=== PATIENT | male | born 1950 | race Caucasian/White ===

== ENCOUNTER 2018-09-09 14:39 | Emergency (ER) | payer MEDICARE ==
[~2018-09-09] VITALS: Ht 180.3 cm; Wt 112.5 kg
[2018-09-09] MEDS ORDERED: LIPITOR10 MG PO (14:58)
[2018-09-09] MEDS ORDERED: LISINOPRIL10 MG PO (14:58)
[2018-09-09] MEDS ORDERED: ADULT ASPIRIN81 MG PO (14:59)
[2018-09-09] MEDS ORDERED: GLUCOPHAGE500 MG PO (14:59)
--- NOTE | 2018-09-09 22:19 | EKG ---
[facility] [address] [facility] [place], [place] [address] Signed Normal sinus rhythm Incomplete right bundle branch block Borderline ECG No previous ECGs available Confirmed by ERNST MILLER DO ([id number]) on 09/09/2018 10:18:51 PM Electronically Signed By: ERNST MILLER DO 09/09/18 2219 PATIENT NAME: SRINIVAS KINNEY Electrocardiogram DATE OF : 46 PHYSICIAN: ERNST MILLER DO REPORT #: [id number] REPORT IS CONFIDENTIAL AND NOT TO BE RELEASED WITHOUT AUTHORIZATION
== END 2018-09-09 17:58 | disposition home or self-care (01) ==
LOC: ED 14:39
DX: R07.9 Chest pain, unspecified (principal); K59.00 Constipation, unspecified; E11.9 Type 2 diabetes mellitus without complications; I10 Essential (primary) hypertension; E78.00 Pure hypercholesterolemia, unspecified; Z88.0 Allergy status to penicillin; Z79.84 Long term (current) use of oral hypoglycemic drugs; Z79.82 Long term (current) use of aspirin; Z79.899 Other long term (current) drug therapy
CPT/HCPCS: 71046; 74018; 80053; 84484; 85025; 93005; 93010; 99285-25

== ENCOUNTER 2024-01-19 21:14 | Emergency (ER) | payer OTHER, MEDICARE ==
[~2024-01-19] VITALS: Ht 180.3 cm; Wt 105.0 kg
[~2024-01-19 21:14] MED LIST: ADULT ASPIRIN81 MG PO; GLUCOPHAGE500 MG PO; LIPITOR10 MG PO; LISINOPRIL-HCT1 EAC2 PO; LISINOPRIL10 MG PO
[2024-01-19 21:29] LABS: EOSINOPHILS 1.9 % (0-6); HEMATOCRIT 47.3 % (35.0-50.0); HEMOGLOBIN 15.5 g/dL (12.0-18.0); LYMPHOCYTES 35.2 % (24-44); MCH 26.9 (27-36); MCHC 32.8 g/dl (30-36); MCV 82.1 fl (81-99); MONOCYTES 11.9 % (0-12); PLATELET COUNT 176 K/uL (140-440); RBC 5.76 M/ul (4.3-5.7); RDW 14.8 (10.5-15.0)
[2024-01-19] MEDS ORDERED: ASPIRIN 325 MG TAB PO ONE (21:30)
[2024-01-19] MEDS ORDERED: ASPIRIN 81 MG CHEW PO ONE (21:30)
[2024-01-19] MEDS ORDERED: NITROGLYCERIN PACKET TOP ONE (21:30)
[2024-01-19 21:43] LABS: INR 1.06 (0.80-1.30); PROTIME 13.1 Sec (11.2-14.2)
[2024-01-19 21:55] LABS: ALBUMIN 4.1 g/dL (3.4-5.0); ALBUMIN/GLOBULIN RATIO 1.37 (1.1-2.4); BILIRUBIN, TOTAL 0.5 ng/dL (0.2-1.0); BUN/CREATININE RATIO 15.04 (6.0-28.6); CALCIUM 9.3 mg/dL (8.5-10.1); CREATININE, SERUM 1.13 mg/dL (0.70-1.30); MAGNESIUM 2.2 mg/dL (1.8-2.4); PROTEIN, TOTAL 7.1 g/dL (6.4-8.2)
[2024-01-19] MEDS ORDERED: CYCLOBENZAPRINE10 MG PO (22:57)
[2024-01-19] MEDS ORDERED: CYCLOBENZAPRINE HCL 10 MG HOME.PACK PO ONE (23:00)
[2024-01-19 23:14] VITALS: BP 149/89
--- NOTE | 2024-01-20 22:03 | EKG ---
[facility] [address] [facility] [place] [address] Signed Normal sinus rhythm Normal ECG When compared with ECG of 09-SEP-2018 14:48, Incomplete right bundle branch block is no longer present Confirmed by Temitope Jiménez MD () on 01/20/2024 10:03:38 PM Electronically Signed By: TEMITOPE JIMÉNEZ MD 01/20/242202 PATIENT NAME: SRINIVAS KINNEY LUTHER Electrocardiogram DATE OF : 46 PHYSICIAN: TEMITOPE JIMÉNEZ MD REPORT #: [id number] REPORT IS CONFIDENTIAL AND NOT TO BE RELEASED WITHOUT AUTHORIZATION
== END 2024-01-19 23:16 | disposition home or self-care (01) ==
LOC: ED 21:14
PROVIDERS: Family Medicine
DX: R07.89 Other chest pain (principal); E11.9 Type 2 diabetes mellitus without complications; I10 Essential (primary) hypertension; E78.00 Pure hypercholesterolemia, unspecified; Z87.891 Personal history of nicotine dependence; Z88.0 Allergy status to penicillin; Z79.84 Long term (current) use of oral hypoglycemic drugs; Z79.82 Long term (current) use of aspirin; Z79.899 Other long term (current) drug therapy
CPT/HCPCS: 36415; 71045; 80053; 83735; 83880; 84484; 85025; 85379; 85610; 93005; 93010; A9270

== ENCOUNTER 2024-05-19 05:55 | Day surgery (SDC) | payer OTHER, MEDICARE ==
[2024-05-09 13:20] VITALS: BP 147/77
[~2024-05-19] VITALS: Ht 180.3 cm; Wt 104.5 kg
[~2024-05-19 05:55] MED LIST changes: +ALOGLIPTIN25 MG PO; +ANTIFUNGAL30 G1; +CLARITIN10 M2 PO; +CYCLOBENZAPRINE10 MG PO; +FLOMAX0.4 MG PO; +IPRATROPIUM BRO15 ML NAS; +JARDIANCE25 MG PO; +LACTATED RINGER'S 1,000 ML IV SCH; +LIPITOR20 MG; +PROSCAR5 MG PO; +REFRESH CLASSI1 EACH OPTH; +REFRESH OPTIVE10 ML OPTH; +VENTOLIN HFA18 GM INH; +VITAMIN B121000 MCG PO; +VITAMIN D325 MC2 PO; +ZESTRIL40 MG PO
[2024-05-19 06:12] VITALS: BP 160/83
[2024-05-19] MEDS ORDERED: METFORMIN HCL1000 MG PO (06:18)
[2024-05-19] MEDS ORDERED: LIDOCAINE HCL 1% 5 ML SDV INJ ONE (07:00)
[2024-05-19] MEDS ORDERED: CEFAZOLIN SODIUM 2 GM/20 ML SYR IV SCH (07:00)
[2024-05-19] MEDS ORDERED: HEParin SOD (PORCINE) 5,000 UNIT/0.5 ML SYR SUB-Q SCH (07:00)
[2024-05-19] MEDS ORDERED: IBLOOD GLUCOSE TEST STRIP 1 EA TEST VI PRN ×2 (07:00→07:15)
[2024-05-19] MEDS ORDERED: fentaNYL citrate 100 MCG/2 ML VIAL ONE (07:03)
[2024-05-19] MEDS ORDERED: LIDOCAINE HCL 2% 5 ML SDV ONE (07:03)
[2024-05-19] MEDS ORDERED: propofoL 200 MG/20 ML VIAL ONE (07:03)
[2024-05-19] MEDS ORDERED: NALOXONE HCL 0.4 MG SYR IV PRN ×2 (07:15→09:00)
[2024-05-19] MEDS ORDERED: ondansetron HCL 4 MG/2 ML VIAL IV PRN ×2 (07:15→09:00)
[2024-05-19] MEDS ORDERED: fentaNYL citrate 50 MCG/ML SDV IV PRN (07:15)
[2024-05-19] MEDS ORDERED: LIDOCAINE HCL 1% 30 ML SDV ONE (08:04)
[2024-05-19] MEDS ORDERED: dexmedeTOMIDine HCl 200 MCG/2 ML VIAL ONE (08:06)
[2024-05-19] MEDS ORDERED: ondansetron HCL 4 MG/2 ML VIAL ONE (08:31)
--- NOTE | 2024-05-19 08:42 | NUR ---
05/19/24 0842 Paige Gu 0840-PT TO PACU IN SF POSITION. EYES CLOSED. DOES NOT RESPODN TO VERBAL OR TACTILE STIMULI. BREATHING EASY AND UNLABORED WITH ORAL AIRWAY IN PLACE. SPO2 >95% ON 6 L O2 VIA SIMPLE MASK.
[2024-05-19] MEDS ORDERED: HYDROmorphone HCL 1 MG/ML SYR IV PRN (09:00)
[2024-05-19] MEDS ORDERED: PROCHLORPERAZINE EDISYLATE 10 MG/2 ML VIAL IV PRN (09:00)
[2024-05-19] MEDS ORDERED: OXYCODONE HCL 5 MG TAB PO PRN (09:00)
[2024-05-19 09:05] VITALS: BP 142/68
--- NOTE | 2024-05-19 09:05 | NUR ---
PT ARRIVED BACK TO FROM PACU AT APPROX 0905. REPORT RECEIVED FROM SHEET PILE DRIVER OPERATOR. PT IS AAOX3 ON RA AND IS ABLE TO MAKE HIS NEEDS KNOWN AND ANSWERS QUESTIONS APPROPRIATELY. VSS. IV SITE ASSESSED, PATENT AND INFUSING LR PER ORDERS. PT DENIES PAIN OR NAUSEA WHEN ASKED. SURGICAL SITEOBSERVED WITH SHEET PILE DRIVER OPERATOR. DRSG IS CDI W/O ANY SHADOWING NOTED. PT PROVIDED WITH ICE WATER, PUDDING, AND MALINA CRACKERS. HOB ELEVATED TO APPROX 45 DEGREES. PT EDUCATED ON USE OF PILLOW TO BRACE ABD INCISION WITH MOVEMENT AND COUGHING, PT REPORTS CHRONIC COUGH D/T POST NASAL DRIP AND ALLERGIES. PT DEMONSTRATED AND VERBALIZED UNDERSTANDING. ALL QUESTIONS ANSWERED. PT DENIES ANY FURTHER NEEDS AT THIS TIME. CALL LIGHT WITHIN PT REACH. BILAT SIDERAILS UP IN PLACE AND BED IS IN LOW POSITION WITH WHEELS LOCKED.
[2024-05-19 10:05] VITALS: BP 147/76
--- NOTE | 2024-05-19 10:45 | NUR ---
1005-INTO PTS ROOM FOR ROUTINE REASSESSMENT. VS TAKEN. OBSERVED SURGICAL SITE AND DRSG REMAINS CDI. ICE PACK IN PLACE TO SURGICAL SITE. PT UTILIZING PILLOW TO SUPPORT SURGICAL SITE WITH POSITION CHANGES AND COUGHING. IV SITE ASSESSED. VS TAKEN. PT DENIES NAUSEA WHEN ASKED AND WAS ABLE TO EAT BOTH PUDDING AND MALINA CRACKERS WITHOUT ISSUES. IV SL'D D/T PT TOLERATING FOOD/FLUIDS W/O ISSUES. PT REMAINS AAO X3 AND IS ABLE TO MAKE HIS NEEDS KNOWN. PT REPORTS PAIN 5/10 IN ABD. REPORTS THIS TO BE TOLERABLE AT THIS TIME. 1015- PT REPORTS URGE TO VOID. PT FEELS HE IS OKAY TO WALK TO RETROOM. PT ASSISTED TO SITTING POSITION ON EOB WITH 1 RN ASSIST AND PT UTILIZING PILLOW TO SUPPORT SURGICAL SITE ON ABD WITH MOVEMENT. PT ASSISTED TO STANDING POSITION AND WAS ABLE TO AMBULATE TO RESTROOM WITH RN SUPERVISION FOR SAFETY. 1025- PT ABLE TO VOID APPROX 400ML OF PALE, YELLOW URINE. PT ASSITED BACK TO BED AND ICE PACK REPLACED TO SURGICAL SITE. DRSG REMAINS CDI POST AMBULATION. PT REPORTING PAIN INCREASED TO 6/10 AND IS REQUESTING PAIN MEDICATION. 1033-PRN OXYCODONE GIVEN PER ORDERS FOR REPORTS OF PAIN 6/10 AT SURGICAL SITE. PT UTILIZING REST AND ICE PACK FOR DISCOMFORT WELL. CALL LIGHT WITHIN PT REACH. BED IN LOW POSITION WITH WHEELS LOCKED. CALLED TO CHECK ON PT AND UPDATE. SHE WILL HEAD TO THE HOSPITAL IN APPROX 45 MINS.
[2024-05-19 11:05] VITALS: BP 142/77
--- NOTE | 2024-05-19 11:10 | NUR ---
1105- INTO PTS ROOM FOR ROUTINE REASSESSMENT. VS TAKEN. IV SITE ASSESSED. SURGICAL DRSG ABOSERVED AND REMAINS CDI W/O ANY ACUTE CHANGES NOTED FROM PREVIOUS ASSESSMENT. PT WITH ICE PACK TO SURGICAL SITE TO AID IN PAIN MANAGMENT AND SWELLING. PT CONT TO UTILIZE PILLOW AND HAND TO SUPPORT SURIGCAL SITE WITH ALL POSITION CHANGES AND WHEN COUGHING. PT REPORTS DECREASED PAIN AND NOW RATES PAIN TO BE 4/10, NOTING THIS TO BE TOLERABLE FOR HIM. PT DENIES NAUSEA WHEN ASKED. HOB REMAINS AT APPROX 45 DEGREES AND PT RESTING WITH EYES CLOSED. CALL LIGHT WITHIN REACH. BED IN LOW POSITION, WHEELS LOCKED. PT DENIES ANY FURTHER NEEDS/QUESTIONS AT THIS TIME.
--- NOTE | 2024-05-19 12:04 | OR ---
[facility] [address] [place], [place] [address] Signed DATE OF OPERATION: 05/19/2024 SURGEON: Fortino Jiménez MD PREOPERATIVE DIAGNOSIS: Reducible umbilical hernia (3 cm). POSTOPERATIVE DIAGNOSIS: Reducible umbilical hernia (3 cm). PROCEDURES: Primary umbilical herniorrhaphy with intra-abdominal round Ventralex mesh (6.4 cm). ESTIMATED BLOOD LOSS: None. INDICATIONS: Richard is a 74-year-old obese diabetic gentleman with a very large protuberant abdomen. He has a reducible but symptomatic umbilical hernia. He and his remains very active, gardening, and so forth. It has been causing him quite a bit of trouble. He went to his primary care provider. He thinks he has chronic constipation with some MiraLAX. He was asked to see me as a local general surgeon for repair of his umbilical hernia. In the office I gave Richard and his a brochure on hernias. We looked at it page by page. They understand the nature of an umbilical hernia. We reviewed the difference between a primary suture repair and a mesh repair. There is risk including, but not limited to bleeding, infection, scarring, change in contour of the skin, damage to bowel, infection of mesh requiring removal, recurrent hernias and chronic pain. He had expressed understanding and wished to proceed. PROCEDURE IN DETAIL: I met with Richard and his this morning in our preop area. We all agreed on the umbilical hernia. We marked that appropriately. After this, Richard was taken in the operating room and placed in the supine position under general LMA anesthesia. He was given preoperative antibiotics along with subcutaneous Lovenox. SCDs were utilized. He was then prepped and draped in the usual sterile fashion. We made a standard infraumbilical transverse incision, carried this down and around the umbilicus bluntly and with the cautery. We the fascial defect from the hernia sac with the help of the cautery. The omentum was reduced. The hernia sac was passed off the field. The fascial defect was 3 cm, maybe slightly more. We therefore chose our 6.4 cm round Ventralex mesh. We placed it inside the abdomen, brought it up, flushed against the Electronically Signed By: FORTINO JIMÉNEZ MD 05/19/24 1204 PATIENT NAME: RICHARD KINNEY OPERATIVE REPORT DATE OF : 46 REPORT #: [id number] PHYSICIAN: FORTINO JIMÉNEZ MD PCP: MAGALI UNDERWOOD MD REPORT IS CONFIDENTIAL AND NOT TO BE RELEASED WITHOUT AUTHORIZATION [facility] [address] [place], [place] [address] Signed posterior abdominal wall. It was held in place with interrupted [id number] and simple #1 Prolene sutures. Several passes of the suture went through the tab on the mesh to hold it in place. The tab was then cut, flushed with the abdominal wall and discarded. Local anesthetic was then injected in the abdominal wall and subcutaneous tissues. The wound was irrigated and suctioned out until clear. We brought the umbilical skin back down to the midline fascia with an interrupted 2-0 PDS suture. The dermis was reapproximated with multiple interrupted 3-0 subcuticular Monocryl sutures. The skin edges were reapproximated with a running 5-0 fast absorbing plain gut suture. Dry gauze and tape was then applied. After this, Richard was awakened from his anesthesia, extubated in the OR, and taken to recovery room in stable condition. Fortino Jiménez MD ALB/MODL /[id number] cc: Fortino Jiménez MD [place], [place] Copies: FORTINO JIMÉNEZ MD ~ Electronically Signed By: FORTINO JIMÉNEZ MD 05/19/24 1204 PATIENT NAME: RICHARD KINNEY OPERATIVE REPORT DATE OF : 46 REPORT #: [id number] PHYSICIAN: FORTINO JIMÉNEZ MD PCP: MAGALI UNDERWOOD MD REPORT IS CONFIDENTIAL AND NOT TO BE RELEASED WITHOUT AUTHORIZATION
[2024-05-19 12:05] VITALS: BP 138/71
--- NOTE | 2024-05-19 12:10 | NUR ---
1155-INTO PTS ROOM FOR DISCHARGE TEACHING. RETURNED TO PTS ROOM AT APPROX 1140 AND REMAINS AT PT BEDSIDE. PT INFORMED OF F/U APPT ON 05/29/24 AT 1035 AND TO REMOVE DRESSING IN THE MORNING AND THAT HE MAY SHOWER REGULAR. RX GIVEN TO PT. INFORMATION SHEET PROVIDED ON OXYCODONE. PT EDUCATED ON USE OF ICE AND ENSURING THERE IS ALWAYS A BARRIER BETWEEN THE ICE PACK AND HIS SKIN TO PREVENT INJURY. PT AND BOTH VERBALIZED UNDERSTANDING. PT EDUCATED ON NEED TO CONT TO BRACE SURGICAL SITE WITH PILLOW OR HIS HAND WHEN MAKING POSITION CHANGES OR COUGHING TO MINIMIZE DISCOMFORT AND REDUCE RISK OF WOUND DEHISCENCE. PT AND HIS VERBALIZED UNDERSTANDING THIS. PT EDUCATED ON LIFTING RESTRICTION/ACTIVITY RESTRICTION WELL. ALL QUESTIONS ANSWERED. 1205-ROUTINE REASSESSMENT COMPLETED. PT REPORTS PAIN INCREASED TO 7/10 IN SURGICAL SITE. VSS. IV SITE ASSESSED AND PATENT. IV DILAUDID GIVEN FOR PAIN RELIEF. FLUSHED WITH 10ML NS BEFORE AND AFTER GIVING IV PAIN MEDS. OBSERVED SURGICAL DRSG AND NO ACUTE CHANGES NOTED FROM PREVIOUS ASSESSMENTS. PT PROVIDED WITH URINAL AT HIS REQUEST AND MORE PUDDING, MALINA CRACKERS, AND A GRANOLA BAR. ICE WATER REFILLED. ALL QUESTIONS ANSWERED. CALL LIGHT WITHIN REACH. BILAT SIDE RAILS IN PLACE. BED IN LOW POSITION WITH WHEELS LOCKED. SATS STABLE AT 93% OR GREATER ON RA AFTER IV DILAUDID GIVEN.
[2024-05-19 13:05] VITALS: BP 148/77
--- NOTE | 2024-05-19 13:35 | NUR ---
1305-INTO PTS ROOM FOR ROUTINE REASSESSMENT. IV SITE ASSESSED. VS TAKEN. SURGICAL SITE OBSERVED AND NO ACUTE CHANGES NOTED FROM PREVIOUS ASSESSMENTS. PT DENIES NAUSEA WHEN ASSKED. PT REPORTS PAIN IMPROVED SIGNIFICANTLY TO 2/10 AT SURGICAL SITE AFTER IV PAIN MEDICATION GIVEN. REMAINS IN ROOM AT PTS BEDSIDE. URINAL EMPTIED OF APPROX 200 ML OF PALE, YELLOW URINE. ICE PACK REFILLED. 1320-PT ASSISTED TO SITTING POSITION ON EOB. BAG OF CLOTHING AND CALL LIGHT PLACED WITHIN PT REACH. IN ROOM AND ASSISTING PT IN DRSG. PT GIVEN CLEAN URINAL TO TAKE HOME AT PT REQUEST. 1330- LEFT TO PULL CAR AROUND FRONT FOR PT DC. IV REMOVED. TIP OBSERVED TO BE INTACT. PRESSURE DRSG APPLIED WITH GAUZE AND COBAN. 1335-PT DISCHARGED FROM TO PASSENGER SIDE OF WIFES VEHICLE. ALL PERSONAL BELONGINGS TAKEN WITH PT. PT AND DENY ANY FURTHER NEEDS OR QUESTIONS AT THIS TIME.
== END 2024-05-19 13:35 | disposition home or self-care (01) ==
LOC: DS 05:55
PROVIDERS: ATTEND Colon & Rectal Surgery
PROC: 0WUF0JZ Supplement Abdominal Wall with Synthetic Substitute, Open Approach (ICD-10-PCS; principal; 2024-05-19 07:30)
DX: K42.9 Umbilical hernia without obstruction or gangrene (principal); K59.09 Other constipation; I10 Essential (primary) hypertension; E78.00 Pure hypercholesterolemia, unspecified; J44.9 Chronic obstructive pulmonary disease, unspecified; E11.3392 Type 2 diabetes mellitus with moderate nonproliferative diabetic retinopathy without macular edema, left eye; E11.36 Type 2 diabetes mellitus with diabetic cataract; E66.9 Obesity, unspecified; Z68.33 Body mass index [BMI] 33.0-33.9, adult; Z87.891 Personal history of nicotine dependence; Z79.84 Long term (current) use of oral hypoglycemic drugs; Z79.82 Long term (current) use of aspirin; Z79.899 Other long term (current) drug therapy; Z88.0 Allergy status to penicillin
CPT/HCPCS: 00750; A9270; C1781; J0690; J1170; J1644; J2001; J2405; J2704; J3010; J7121